=== PATIENT | male | born 1975 | race African-American/Black ===

== ENCOUNTER 2017-12-24 13:13 | Emergency (ER) | payer SELFPAY ==
[~2017-12-24] VITALS: Ht 172.7 cm; Wt 90.7 kg
[2017-12-24 13:37] VITALS: BP 140/98
[2017-12-24] MEDS ORDERED: LIDOCAINE WITH 8.4% SOD BICARB 3 ML DISP.SYRIN. INJ ONE (14:00)
[2017-12-24] MEDS ORDERED: LIDOCAINE WITH 8.4% SOD BICARB 3 ML DISP.SYRIN. ONE (14:04)
[2017-12-24] MEDS ORDERED: HYDR-971 PO (14:46)
[2017-12-24] MEDS ORDERED: SULF1TAB24 PO (14:46)
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
== END 2017-12-24 15:07 | disposition home or self-care (01) ==
LOC: ER 13:13
DX: L02.11 Cutaneous abscess of neck (principal); I10 Essential (primary) hypertension
CPT/HCPCS: 10061; 99284-25

== ENCOUNTER 2017-12-26 15:13 | Emergency (ER) | payer SELFPAY ==
[~2017-12-26] VITALS: Ht 172.7 cm; Wt 90.7 kg
[~2017-12-26 15:13] MED LIST: HYDR-971 PO; SULF1TAB24 PO
[2017-12-26 15:16] VITALS: BP 130/82
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
[2017-12-26] MEDS ORDERED: IBUPROFEN 600 MG TABLET. PO ONE (16:00)
== END 2017-12-26 15:39 | disposition home or self-care (01) ==
LOC: ER 15:13
DX: Z48.01 Encounter for change or removal of surgical wound dressing (principal); I10 Essential (primary) hypertension; F17.200 Nicotine dependence, unspecified, uncomplicated
CPT/HCPCS: 99284

== ENCOUNTER 2019-08-06 12:51 | Emergency (ER) | payer SELFPAY ==
[~2019-08-06] VITALS: Ht 172.7 cm; Wt 74.0 kg
[~2019-08-06 12:51] MED LIST changes: +HYDR-3164 PO; -HYDR-971 PO
[2019-08-06 12:58] VITALS: BP 107/72
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
[2019-08-06] MEDS ORDERED: NAPR500T8 PO (14:16)
[2019-08-06] MEDS ORDERED: CYCL10TA2 PO (14:16)
== END 2019-08-06 14:19 | disposition home or self-care (01) ==
LOC: ER 12:51
DX: R07.89 Other chest pain (principal); M25.552 Pain in left hip; M54.5 Low back pain; G89.11 Acute pain due to trauma; I10 Essential (primary) hypertension; F17.200 Nicotine dependence, unspecified, uncomplicated; V49.49XA Driver injured in collision with other motor vehicles in traffic accident, initial encounter; Y93.89 Activity, other specified; Y92.488 Other paved roadways as the place of occurrence of the external cause; Y99.8 Other external cause status
CPT/HCPCS: 71046; 72100; 73502; 99284

== ENCOUNTER 2019-12-30 02:14 | Emergency (ER) | payer SELFPAY ==
[~2019-12-30] VITALS: Ht 177.8 cm; Wt 90.7 kg
[~2019-12-30 02:14] MED LIST changes: +CYCL10TA2 PO; +NAPR500T8 PO
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
--- NOTE | 2019-12-30 03:01 | RAD ---
Left knee 3 views. HISTORY: Pain left knee 3 views were taken of the left knee. There is not evidence of an acute fracture or joint effusion or osseous abnormality. IMPRESSION: 1. Negative left knee. Electronically signed by: Sha Kate MD (12/30/2019 2:57 AM) [id number]
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
[2019-12-30] MEDS ORDERED: DIPH,PERTUSS(ACELL),TET VAC/PF 0.5 ML SYRINGE. VAX IM ONE (04:00)
[2019-12-30] MEDS ORDERED: HYDR-3164 PO (04:01)
[2019-12-30 04:15] VITALS: BP 152/98
== END 2019-12-30 04:23 | disposition home or self-care (01) ==
LOC: ER 02:14
DX: S00.81XA Abrasion of other part of head, initial encounter (principal); S60.511A Abrasion of right hand, initial encounter; S80.212A Abrasion, left knee, initial encounter; I10 Essential (primary) hypertension; F17.200 Nicotine dependence, unspecified, uncomplicated; V19.49XA Pedal cycle driver injured in collision with other motor vehicles in traffic accident, initial encounter; Y92.488 Other paved roadways as the place of occurrence of the external cause; Y93.89 Activity, other specified; Y99.8 Other external cause status
CPT/HCPCS: 70450; 73562; 99285-25

== ENCOUNTER 2020-02-27 20:07 | Emergency (ER) | payer SELFPAY ==
[~2020-02-27] VITALS: Ht 172.7 cm; Wt 90.9 kg
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
[2020-02-27 20:43] VITALS: BP 171/110
[2020-02-27] MEDS ORDERED: MIDAZOLAM HCL/PF 5 MG/5 ML VIAL. NS ONE (20:45)
[2020-02-27] MEDS ORDERED: IV NORMAL SALINE 1000ML BAG 1,000 ML IV ONE (20:45)
--- NOTE | 2020-03-01 04:21 | EKG ---
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
== END 2020-02-27 20:57 | disposition left against medical advice (07) ==
LOC: ER 20:07
DX: I10 Essential (primary) hypertension (principal); R06.02 Shortness of breath; F17.200 Nicotine dependence, unspecified, uncomplicated; Z98.890 Other specified postprocedural states; Z76.5 Malingerer [conscious simulation]
CPT/HCPCS: 99284

== ENCOUNTER 2020-04-29 20:38 | Emergency (ER) | payer SELFPAY ==
[~2020-04-29] VITALS: Ht 167.6 cm; Wt 68.2 kg
[2020-04-29 20:38] VITALS: BP 171/110
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
--- NOTE | 2020-04-29 21:09 | EKG ---
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
== END 2020-04-29 20:52 | disposition left against medical advice (07) ==
LOC: ER 20:38
DX: R07.89 Other chest pain (principal); I10 Essential (primary) hypertension; F17.200 Nicotine dependence, unspecified, uncomplicated
CPT/HCPCS: 93005; 99283